=== PATIENT | female | born 1965 | race Caucasian/White ===

== ENCOUNTER 2023-11-27 | Inpatient (IN) | payer OTHER | END 2023-11-29 20:52 | disposition short-term general hospital (02) | DRG 64 | PROVIDERS: ADMIT Emergency Medicine | PROC: 5A0945A Assistance with Respiratory Ventilation, 24-96 Consecutive Hours, High Flow/Velocity Cannula (ICD-10-PCS; 2023-11-28) | PROC: 4A033R1 Measurement of Arterial Saturation, Peripheral, Percutaneous Approach (ICD-10-PCS; principal; 2023-11-29) | DX: I63.9 Cerebral infarction, unspecified (principal); I21.A1 Myocardial infarction type 2; G81.92 Hemiplegia, unspecified affecting left dominant side; J96.11 Chronic respiratory failure with hypoxia; J84.10 Pulmonary fibrosis, unspecified; M34.9 Systemic sclerosis, unspecified; R56.9 Unspecified convulsions; I50.9 Heart failure, unspecified; E78.00 Pure hypercholesterolemia, unspecified; K21.9 Gastro-esophageal reflux disease without esophagitis; Z88.2 Allergy status to sulfonamides; Z88.8 Allergy status to other drugs, medicaments and biological substances; Z79.899 Other long term (current) drug therapy; Z98.890 Other specified postprocedural states; Z82.49 Family history of ischemic heart disease and other diseases of the circulatory system; Z87.891 Personal history of nicotine dependence; I27.23 Pulmonary hypertension due to lung diseases and hypoxia; R47.01 Aphasia; R29.722 NIHSS score 22; I25.5 Ischemic cardiomyopathy; Z92.82 Status post administration of tPA (rtPA) in a different facility within the last 24 hours prior to admission to current facility ==